=== PATIENT | male | born 1950 | race Caucasian/White ===

== ENCOUNTER 2019-11-24 15:54 | Emergency (ER) | payer MEDICARE | END 2019-11-24 17:36 | disposition E | LOC: NAV ERS 15:54 | DX: I46.9 Cardiac arrest, cause unspecified (principal); Z85.05 Personal history of malignant neoplasm of liver; Z85.850 Personal history of malignant neoplasm of thyroid; J44.9 Chronic obstructive pulmonary disease, unspecified | CPT/HCPCS: 92950 ==